=== PATIENT | female | born 1950 | race Caucasian/White ===

== ENCOUNTER 2022-03-19 08:40 | Observation (INO) ==
[2022-03-19] MEDS ORDERED: Aspirin 81 MG TAB.CHEW PO ONE (08:53)
[2022-03-19 09:09] LABS: Basophils % 0.8 %; Eosinophils # 0.2 K/mcL (0.0-0.6); Hematocrit 37.6 % (35.3-44.9); Hemoglobin 12.1 g/dL (11.5-15.4); Immature Granulocytes % 0.3 % (0-4); Lymphocytes # 1.6 K/mcL (0.6-4.6); Lymphocytes % 43.1 %; Mean Corpuscular HGB Conc 32.2 g/dL (31.6-35.5); Mean Corpuscular Hemoglobin 31.2 pg (28.0-33.3); Mean Corpuscular Volume 96.9 fL (83.0-100.0); Mean Platelet Volume 10.3 fL (9.4-12.4); Monocytes # 0.4 K/mcL (0.0-1.3); Monocytes % 9.3 %; Neutrophils # 1.6 K/mcL (1.6-8.9); Platelet Count 209 K/mcL (140-400); Red Blood Count 3.88 M/mcL (3.82-4.97); Red Cell Distribution Width 15.9 % (11.5-14.5); Segmented Neutrophils % 41.5 %; White Blood Count 3.8 K/mcL (4.3-11.1)
[2022-03-19 09:21] LABS: Prothrombin Time 11.5 Seconds (9.4-12.1)
[2022-03-19 09:24] LABS: Activated Partial Thrombo Time 30.5 Seconds (26.0-36.0)
[2022-03-19 09:26] LABS: Alanine Aminotransferase 13 Units/L (7-52); Albumin 4.6 g/dL (3.5-5.7); Albumin/Globulin Ratio 1.6 (1.1-2.2); Alkaline Phosphatase 72 Units/L (34-104); Aspartate Amino Transferase 16 Units/L (13-39); BUN/Creatinine Ratio 9 (6-26); Bilirubin,Total 0.3 mg/dL (0.3-1.0); Blood Urea Nitrogen 9 mg/dL (8-23); Calcium 9.5 mg/dL (8.6-10.3); Carbon Dioxide 24 mEq/L (23-29); Chloride 101 mEq/L (98-107); Globulin 2.8 g/dL (2.4-3.5); Glucose 113 mg/dL (70-105); Magnesium 1.8 mg/dL (1.6-2.6); Osmolality,Calculated 281 (280-300); Phosphorous 3.5 mg/dL (2.7-4.5); Potassium 3.3 mEq/L (3.5-5.1); Sodium 136 mEq/L (136-145); Total Protein 7.4 g/dL (6.4-8.9)
[2022-03-19 09:30] LABS: Troponin I < 0.03 ng/mL (< 0.04)
[2022-03-19] MEDS ORDERED: Potassium Effervescent 25 MEQ TABLET.EFF PO ONE (09:58)
[2022-03-19] MEDS ORDERED: Ondansetron 4 MG/2 ML VIAL IVP ONE (10:58)
[2022-03-19] MEDS ORDERED: Naloxone 0.4 MG/ML INJ IVP PRN (11:19)
[2022-03-19] MEDS ORDERED: Ondansetron 4 MG/2 ML VIAL IVP PRN (11:19)
[2022-03-19] MEDS ORDERED: Acetaminophen 325 MG TABLET PO PRN (11:19)
[2022-03-19] MEDS ORDERED: Nitroglycerin 0.4 MG TAB.SUBL SL PRN (11:26)
[2022-03-19] MEDS ORDERED: Ipratropium/Albuterol Neb 3 ML IH PRN (11:26)
[2022-03-20 05:04] LABS: Mean Corpuscular HGB Conc 31.4 g/dL (31.6-35.5); Mean Corpuscular Hemoglobin 30.9 pg (28.0-33.3); Mean Corpuscular Volume 98.3 fL (83.0-100.0); Mean Platelet Volume 10.2 fL (9.4-12.4); Platelet Count 205 K/mcL (140-400); Red Blood Count 3.56 M/mcL (3.82-4.97); Red Cell Distribution Width 15.9 % (11.5-14.5); White Blood Count 3.8 K/mcL (4.3-11.1)
[2022-03-20 05:31] LABS: Calcium 9.1 mg/dL (8.6-10.3); Chol/HDL Ratio 3.7 (0-4.9); Potassium 3.9 mEq/L (3.5-5.1)
[2022-03-20] MEDS: Aspirin Enteric Coated 81 MG Tablet PO SCH (09:30)
[2022-03-20] MEDS ORDERED: Famotidine 20 MG/2 ML VIAL IVP ONE (11:24)
[2022-03-20] MEDS ORDERED: Mag Hydrox/Al Hydrox/Simeth 30 ML UDC PO ONE (11:25)
[2022-03-21 07:46] VITALS: BP 110/69; PULSE 77; RESP 15; TEMP 97.9; O2SAT 98
[2022-03-21] MEDS: Aspirin Enteric Coated 81 MG Tablet PO SCH (09:25)
== END 2022-03-21 11:33 | disposition home or self-care (01) ==
LOC: INPGRE 08:40 → EMEROOGRE 08:40 → INPGRE 11:40
PROVIDERS: ADMIT Family Medicine; ATTEND Family Medicine